=== PATIENT | female | born 1995 | race Caucasian/White ===

== ENCOUNTER 2018-04-30 07:03 | Emergency (ER) | payer OTHER, SELFPAY ==
[2018-04-30 07:05] VITALS: BP 116/75; PULSE 59; RESP 16; TEMP 36.6; O2SAT 99; BMI 24.0
--- NOTE | 2018-04-30 07:18 | PC.NURSE ---
taken tylenol 1gm last dose at 9pm
--- NOTE | 2018-04-30 08:09 | ED_ITS ---
HPI - Extremity Injury (Upper) General Chief Complaint: Extremity Injury, Upper Stated Complaint: cut left hand/finger Time Seen by Provider: 04/30/18 07:30 Source: patient Mode of arrival: ambulatory Limitations: no limitations History of Present Illness HPI narrative: Patient states she dropped a bottle of wine on the floor, and slipped on the wine and fell, catching herself with her right hand and cutting the hand. Patient states she lives on [facility], and was not able to get here until this morning. She states the injury happened about 2100 last night. Patient denies any other injuries, and is otherwise well. complaint: injury to: right and hand Onset (ago): hour(s) Other Extremity Injury: Right: hand (Laceration) Other injuries: none Handedness: ambidextrous Place: home Severity: mild Severity scale (1-10): 2 Relieving factors: none Exacerbating factors: none Context: fall Associated symptoms: denies other symptoms Related Data Previous Rx's Medication Instructions Recorded acyclovir 800 mg PO 5XD #50 tab 02/10/17 Allergies Allergy/AdvReac Type Severity Reaction Status Date / Time No Known Allergies Allergy Uncoded 10/17/17 12:44 Review of Systems Review of Systems All systems reviewed & are unremarkable except as noted in HPI and below Constitutional Denies chills, Denies fever(s), Denies lethargy and Denies weakness Eyes Denies change in vision, Denies eye discharge, Denies irritation and Denies loss of vision ENT Ears, Nose, Mouth, and Throat: Denies change in voice, Denies neck pain and Denies sore throat Cardiovascular Denies chest pain, Denies irregular heart rhythm, Denies lightheadedness, Denies palpitations, Denies dyspnea, Denies dyspnea on exertion and Denies orthopnea Respiratory Denies cough, Denies dyspnea, Denies dyspnea on exertion and Denies wheezing Gastrointestinal Gastrointestinal: Denies abdominal pain, Denies change in bowel habits, Denies diarrhea, Denies nausea and Denies vomiting Genitourinary Denies hematuria, Denies flank pain, Denies urinary incontinence and Denies urinary urgency Musculoskeletal Denies limited range of motion, Denies neck pain, Denies numbness and Denies radiating pain into limb Comments: Right hand laceration Integumentary/Breasts Denies pruritus, Denies erythema, Denies rash and Reports wounds (Laceration) Neurologic Denies confusion, Denies loss of vision, Denies numbness and Denies weakness Psychiatric Denies anxiety, Denies confusion, Denies depression, Denies homicidal ideation and Denies suicidal ideation Endocrine Denies palpitations Hematologic/Lymphatic Denies easy bruising Allergic/Immunologic Denies wheezing FOR[facility]LY [facility] Medical History Healthy adult (Acute) Surgical History No pertinent past surgical history (Acute) Social History Smoking Status: Never smoker Exam Initial Vital Signs Initial Vital Signs: Vital Signs Temperature 97.8 F 04/30/18 07:05 Pulse Rate 59 L 04/30/18 07:05 Respiratory Rate 16 04/30/18 07:05 Blood Pressure 116/75 04/30/18 07:05 Pulse Oximetry 99 04/30/18 07:05 Const General: cooperative and well developed Nutritional Appearance: well nourished Orientation: alert, awake, oriented x3 and not confused HENIL Head: normal to inspection Ears: hearing grossly normal bilaterally Nose: external nose normal Face and sinus: normal facial exam Mouth: moist mucous membranes Eyes General: appearance normal, both eyes and all related structures Eyelids: eyelids normal EOM: EOM intact bilaterally Neck Neck: normal visual inspection and full ROM Resp Effort & Inspection: normal respiratory effort, able to speak in complete sentences, normal respiratory pattern and no respiratory distress Skin Other: Patient has a 2 cm laceration extending through her right 5th web space. Depth is up to 4 mm. No foreign bodies are noted. Wound is oozing blood. No pulsatile bleeding. No evidence of nerve or tendon damage. Patient has full flexion and extension of her 5th and 4th fingers. Neuro General: alert, awake and oriented x3 Cognition: normal cognition Speech: speech normal Gait: normal gait Motor: no movement abnormalities noted Sensory Exam: no sensory deficits noted Procedures Laceration Repair Laceration 1: Site: hand Side (If applicable): right Size (cm): 2 Description: linear Depth: simple, single layer Local Anesthetic: lidocaine 1% Amount of anesthesia used (mL): 4 Pre-repair: wound explored, irrigated extensively and deep structures intact Skin layer closed with: nylon Size (cm): 5-0 Number of sutures: 5 Technique: simple, interrupted Course Course Narrative: Patient's wound was cleansed and repaired, as noted above. Tetanus is up-to-date. Patient was counseled regarding wound care and need for suture removal in 7 days. She was also counseled regarding wound infection signs and symptoms. The usual indications for return were discussed. Vital Signs - 8 hr 04/30/18 07:05 Temperature 97.8 F Pulse Rate 59 L Respiratory Rate 16 Blood Pressure 116/75 Pulse Oximetry 99 MDM - Extremity Injury (Upper) Medical Records Attestation: I reviewed the patient's medical records. Discharge Plan Departure Patient Disposition: Home Clinical Impression: Laceration Instructions: DI for Laceration Repair Activity Restrictions/Additional Instructions: Please do not immerse, rub, or scrub the wound, as this can increase your risk for infection. You should have her sutures removed in 7 days by your primary care physician or at the walk-in clinic. If you develops redness spreading away from the wound, or if the wound split apart and begins to drain, you should have the wound rechecked immediately. Prescriptions: No Action acyclovir 800 MG tablet 800 mg PO 5XD Qty: 50 RF: 0 Referrals: [facility] [Provider Group] (Please follow up in 7 days for suture removal.)
[2018-04-30 08:20] VITALS: BP 117/66; PULSE 70; RESP 16; O2SAT 98
--- NOTE | 2018-04-30 08:21 | PC.NURSE ---
right hand cleaned and dried, bacitracin ointment applied, ok per pt, 2x2 with kerlix and tape, with hemostasis, tolerated well, distal cms intact, with full rom.
== END 2018-04-30 08:22 | disposition home or self-care (01) ==
PROVIDERS: Emergency Provider Emergency Medicine
DX: S61.411A Laceration without foreign body of right hand, initial encounter (principal); W25.XXXA Contact with sharp glass, initial encounter
CPT/HCPCS: 12001; 99282

== ENCOUNTER 2019-01-21 11:20 | Emergency (ER) | payer OTHER, SELFPAY ==
[2019-01-21 11:34] VITALS: BP 123/65; PULSE 72; RESP 13; TEMP 36.3; O2SAT 99
--- NOTE | 2019-01-21 11:48 | ED.PSYCH ---
HPI - Psych General Chief Complaint: Psychiatric Symptoms Stated Complaint: cant stop crying/mental health Time Seen by Provider: 01/21/19 11:41 Source: patient and family (Mother) Mode of arrival: ambulatory Limitations: no limitations History of Present Illness HPI Narrative: Patient is an otherwise healthy 23-year-old female. Here in the emergency department with her mother. She states that since Sunday she has felt ?off? she states that she feels ? ?from her life. She states that she feels like she is questioning everything. She feels like she is depressed. No SI or HI. She lives here in the local area with a roommate. The rest of her family lives in [place]. She states that several years ago she had an episode of depression however this did not result in any long-term treatment or any long-term medications. She did state that on Sunday she smoked marijuana which she bought from the local shop. Since then symptoms have not worsened but just have not gotten any better. She was tearful in the room. Related Data Allergies Allergy/AdvReac Type Severity Reaction Status Date / Time No Known Allergies Allergy Uncoded 10/17/17 12:44 Review of Systems Constitutional Denies fever(s) and Denies headache(s) ENT Ears, Nose, Mouth, and Throat: Denies dizziness, Denies headache(s) and Denies disequilibrium Cardiovascular Denies chest pain and Denies dyspnea Respiratory Denies dyspnea Gastrointestinal Gastrointestinal: Denies abdominal pain Genitourinary Denies dysuria Musculoskeletal Denies myalgias and Denies arthralgias Integumentary/Breasts Denies rash Neurologic Reports behavioral changes, Denies confusion, Denies dizziness, Denies headache(s), Denies memory loss and Denies disequilibrium Psychiatric Reports behavioral changes, Denies confusion, Reports depression, Reports difficulty concentrating, Denies auditory hallucinations, Reports hopelessness, Reports irritability, Denies memory loss, Reports mood swings, Denies visual hallucinations, Denies hallucinations, Denies homicidal ideation and Denies suicidal ideation Hematologic/Lymphatic Denies easy bleeding and Denies easy bruising FOR[facility]LY [facility] Medical History Healthy adult (Acute) Social History Smoking Status: Never smoker Exam Initial Vital Signs Initial Vital Signs: Vital Signs Temperature 97.3 F L 01/21/19 11:34 Pulse Rate 72 01/21/19 11:34 Respiratory Rate 13 01/21/19 11:34 Blood Pressure 123/65 01/21/19 11:34 Pulse Oximetry 99 01/21/19 11:34 Const General: cooperative, well groomed and No acute distress Orientation: alert, awake and oriented x3 HENMT Head: normal to inspection and normocephalic Resp Effort & Inspection: normal respiratory effort Auscultation: clear to auscultation bilaterally Cardio Rate: regular rate Rhythm: regular rhythm Skin Lesions: no lesions Rashes: no rashes Neuro General: alert, awake and oriented x3 Cognition: normal cognition Speech: speech normal Extrem General: normal to inspection and capillary refill normal Psych Appearance: well kempt Speech and Movement: not agitated and restless Mood: dysthymic mood Affect: sad and No hostile Attitude: cooperative Thought Process: normal Thought Content: normal Course Orders Ordered: ED Orders 01/21/19 11:49 Consult to Point Of Sale Associate Stat 01/21/19 12:12 Urine Drug Screen, Rapid Stat 01/21/19 12:16 Basic Metabolic Panel Stat Complete Blood Count AUTO DIFF Stat Ethanol (ETOH) Stat Thyroid Stimulating Hormone Stat Vital Signs - 8 hr 01/21/19 11:34 Temperature 97.3 F L Pulse Rate 72 Respiratory Rate 13 Blood Pressure 123/65 Pulse Oximetry 99 MDM - Psych Lab Data Attestation: I reviewed the patient's lab results. Result diagrams: 01/21/19 12:16 01/21/19 12:16 Lab Results 01/21/19 01/21/19 01/21/19 Range/Units 12:12 12:16 12:16 WBC 7.7 (4.5-11.0) X10^3/uL RBC 4.33 (4.0-5.2) X10^6/uL Hgb 13.8 (12.0-16.0) g/dL Hct 40.6 (36-46) % MCV 93.8 (80-100) fL MCH 32.0 (26-34) PG MCHC 34.1 (30-36) % RDW 12.6 (11.6-14.8) % Plt Count 225 (150-400) X10^3/uL Neut % (Auto) 76.9 H (50-75) % Lymph % (Auto) 16.4 L (25-40) % [place] % (Auto) 5.8 (3-14) % Eos % (Auto) 0.6 L (2-4) % Baso % (Auto) 0.3 (0-2) % Neut # (Auto) 5900 (6069-1046) /uL Lymph # (Auto) 1300 (9655-2216) /uL [place] # (Auto) 400 (0-900) /uL Eos # (Auto) 0 (0-450) /uL Baso # (Auto) 0 (0-100) /uL Sodium 140 (137-145) mmol/L Potassium 4.0 (3.4-5.1) mmol/L Chloride 103 (98-107) mmol/L Carbon Dioxide 28 (22-32) mmol/L BUN 12 (7-17) mg/dL Creatinine 0.60 (0.52-1.04) mg/dL Estimated GFR > 60.0 (>60) mL/min BUN/Creatinine Ratio 20.0 (6-22) Glucose 114 H (70-100) mg/dL Calcium 9.2 (8.4-10.2) mg/dL TSH (0.47-4.68) uIU/mL Urine Opiates Screen Negative (Negative) Ur Oxycodone Screen Negative (Negative) Urine Methadone Screen Negative (Negative) Ur Barbiturates Screen Negative (Negative) U Tricyclic Antidepress Negative (Negative) Ur Phencyclidine Scrn Negative (Negative) Ur Amphetamines Screen Negative (Negative) U Methamphetamines Scrn Negative (Negative) Ur MDMA Scrn (Ecstasy) Negative (Negative) U Benzodiazepines Scrn Negative (Negative) Urine Cocaine Screen Negative (Negative) U Marijuana (THC) Screen Positive H (Negative) Ethyl Alcohol < 10 mg/dL 01/21/19 Range/Units 12:16 WBC (4.5-11.0) X10^3/uL RBC (4.0-5.2) X10^6/uL Hgb (12.0-16.0) g/dL Hct (36-46) % MCV (80-100) fL MCH (26-34) PG MCHC (30-36) % RDW (11.6-14.8) % Plt Count (150-400) X10^3/uL Neut % (Auto) (50-75) % Lymph % (Auto) (25-40) % [place] % (Auto) (3-14) % Eos % (Auto) (2-4) % Baso % (Auto) (0-2) % Neut # (Auto) (2580-9651) /uL Lymph # (Auto) (5085-3845) /uL [place] # (Auto) (0-900) /uL Eos # (Auto) (0-450) /uL Baso # (Auto) (0-100) /uL Sodium (137-145) mmol/L Potassium (3.4-5.1) mmol/L Chloride (98-107) mmol/L Carbon Dioxide (22-32) mmol/L BUN (7-17) mg/dL Creatinine (0.52-1.04) mg/dL Estimated GFR (>60) mL/min BUN/Creatinine Ratio (6-22) Glucose (70-100) mg/dL Calcium (8.4-10.2) mg/dL TSH 0.42 L (0.47-4.68) uIU/mL Urine Opiates Screen (Negative) Ur Oxycodone Screen (Negative) Urine Methadone Screen (Negative) Ur Barbiturates Screen (Negative) U Tricyclic Antidepress (Negative) Ur Phencyclidine Scrn (Negative) Ur Amphetamines Screen (Negative) U Methamphetamines Scrn (Negative) Ur MDMA Scrn (Ecstasy) (Negative) U Benzodiazepines Scrn (Negative) Urine Cocaine Screen (Negative) U Marijuana (THC) Screen (Negative) Ethyl Alcohol mg/dL Point of Care Testing Test Results Negative Urine Dip Bedside Urine Glucose Negative Bedside Urine Bilirubin - Negative Bedside Urine Ketone +++ 80 Urine Specific [place] 1.020 Bedside Urine Occult Blood +/- Bedside Urine pH 6.5 Bedside Urine Protein +/- 15 Bedside Urine Urobilinogen +/- 1mg Bedside Urine Nitrite - Negative Bedside Urine Leukocytes - Negative Esterase MDM Narrative Medical decision making narrative: Patient is not suicidal and not homicidal. She was seen by social work. She does have an appointment tomorrow [facility]. She was given resources and crisis numbers. She is medically cleared. We did discuss that her slightly low TSH . She was instructed that she needed to follow up with her primary doctor regarding this. She was given information with regard setting up a primary provider. She was given return precautions and follow-up instructions. She had a GCS of 15 in my opinion had the capacity to make decisions. Does not meet involuntary criteria. Patient and mother expressed understanding and agreement plan. Discharge Plan Departure Patient Disposition: Home Clinical Impression: Depression Qualifiers: Depression Type: unspecified Qualified Code(s): F32.9 - Major depressive disorder, single episode, unspecified Instructions: Depression Activity Restrictions/Additional Instructions: Keep your scheduled medical appointment that you have tomorrow. I would avoid any marijuana or alcohol until you have resolution of your symptoms. Return to the emergency department for any new or worsening symptoms
[2019-01-21 12:32] LABS: Add Manual Diff / Slide Review NO; Basophils Absolute Auto 0 /uL (0-100); Basophils Percent Auto 0.3 % (0-2); Eosinophils Absolute Auto 0 /uL (0-450); Eosinophils Percent Auto 0.6 % (2-4); Hematocrit 40.6 % (36-46); Hemoglobin 13.8 g/dL (12.0-16.0); Lymphocytes Absolute Auto 1300 /uL (1100-4500); Lymphocytes Percent Auto 16.4 % (25-40); Mean Corpuscular HGB Conc 34.1 % (30-36); Mean Corpuscular Volume 93.8 fL (80-100); Monocytes Absolute Auto 400 /uL (0-900); Monocytes Percent Auto 5.8 % (3-14); Neutrophils Absolute Auto 5900 /uL (1500-7000); Neutrophils Percent Auto 76.9 % (50-75); Platelet Count 225 X10^3/uL (150-400); Red Blood Cell Count 4.33 X10^6/uL (4.0-5.2); Red Cell Distribution Width 12.6 % (11.6-14.8); White Blood Cell Count 7.7 X10^3/uL (4.5-11.0)
[2019-01-21 12:37] LABS: Urine Amphetamines Negative (Negative); Urine Barbiturates Negative (Negative); Urine Benzodiazepines Negative (Negative); Urine Cocaine Negative (Negative); Urine MDMA Negative (Negative); Urine Methadone Negative (Negative); Urine Methamphetamines Negative (Negative); Urine Morphine/Opi cutoff 2000 Negative (Negative); Urine Oxycodone Negative (Negative); Urine Phencyclidine Negative (Negative); Urine Tetrahydrocannabinol Positive (Negative); Urine Tricyclic Antidepressant Negative (Negative)
[2019-01-21 12:42] LABS: Blood Urea Nitrogen 12 mg/dL (7-17); Calcium 9.2 mg/dL (8.4-10.2); Carbon Dioxide 28 mmol/L (22-32); Chloride 103 mmol/L (98-107); Estimated Glomerular Filt Rate > 60.0 mL/min (>60); Ethanol (ETOH) < 10 mg/dL; Glucose 114 mg/dL (70-100); HEMOLYSIS < 15 (0-50); Sodium 140 mmol/L (137-145)
[2019-01-21 13:29] LABS: Thyroid Stimulating Hormone 0.42 uIU/mL (0.47-4.68)
[2019-01-21 14:54] VITALS: BP 113/60; PULSE 61; RESP 15; O2SAT 100
[2019-01-21 15:05] VITALS: BP 104/64; PULSE 150; RESP 30; TEMP 36.6; O2SAT 100
--- NOTE | 2019-01-21 15:41 | CM.SWNOTE ---
PLATE MAKER Note: Received request from Dr. Leyva today to evaluate patient for emotional status/mental health. Patient is a 23yr old female brought into the ED by her Mother with depression. Patient currently has no PCP. Primary payor is 1)[employer]. Patient resides on [facility] with roommate. Mother/Brenda resides in [place] and came to see patient when patient called her and said something is wrong. Per patient she smoke marijuana on Sunday- after that she has not felt like myself. Tox screen negative for other substances. PLATE MAKER met with patient explained role. Patient alert and oriented but teary and emotional at time of visit. PLATE MAKER met first with patient alone. Patient denies suicidal or homicidal ideation. Patient reports that she just feels overwhelmed and tries too do to much. Patient also adds that she is a perfectionist. With patient's permission, Mother joined interview. Mother confirms that patient has a lot of stress with work. Patient works in [employer] service and it's summer which is causing additional stress. Patient also tends to be a loner. Patient's best friend and roommate left town which also attributes to patient's mood. Patient denies history with depression or medication. Patient has seen a counselor once several years ago. Patient did not continue because she felt that she did not click with the counselor. PLATE MAKER placed call to patient's health care provider/[employer] provided list of contracted counselors and psychiatrists for patient and Mother to review. Mother agreeable to take patient home today. It is unclear if patient having difficulty due to the marijuana she smoked on Sunday? or life stresses. Regardless, patient agreeable to seek counselor. Mother made appointment for patient to be seen at [facility] tomorrow 01-22-19 at 2:00pm. If prescription needed they have prescriber. Dr. Leyva updated and agreeable to plan. P: Home today. Community resources provided for mental health and crisis. RHETT Cordova
== END 2019-01-21 15:07 | disposition home or self-care (01) ==
PROVIDERS: Emergency Provider Emergency Medicine
DX: F32.9 Major depressive disorder, single episode, unspecified (principal)
CPT/HCPCS: 36415; 80048; 80305; 80320; 81003; 81025; 84443; 85025; 99282; 99283

== ENCOUNTER 2019-08-07 06:58 | Emergency (ER) | payer OTHER, MEDICAID, SELFPAY ==
[2019-08-07 07:07] VITALS: BP 127/72; PULSE 87; RESP 15; TEMP 36.8; O2SAT 99
--- NOTE | 2019-08-07 07:35 | PC.NURSE ---
pt reports 12 hours old laceration right index finger , from open canned. arrived with steri strip +rom distal cms intact.
--- NOTE | 2019-08-07 07:41 | ED.WOUNDLAC ---
HPI - Wound/Laceration General Chief Complaint: Wound/Laceration Stated Complaint: cut on right index knuckle cut on can Time Seen by Provider: 08/07/19 07:41 Source: patient Mode of arrival: Ambulatory History of Present Illness HPI narrative: CC: Laceration over the dorsum of the metacarpal-phalangeal joint right index finger. HPI. The patient last night cut the dorsum of her right index finger over the metacarpophalangeal joint on a can that had been opened in the refrigerator for a while. She states that her tetanus is up-to-date. [facility] was unable to come into the emergency department last night. She is not having significant pain or discomfort. Last night she was able to flex and extend her finger without difficulty today it is stiff. They washed out the finger last night with iodine solution. She has no loss of sensation. There is no signs of infection. She has had no fever chills or sweats. She has been in good health has no other complaints. She denies being . She has had no chest pain cough shortness of breath difficulty in breathing no abdominal pain nausea vomiting or diarrhea. She has had no urinary symptoms. She does not smoke Related Data Home Medications Medication Instructions Recorded Confirmed mirtazapine PO 03/03/19 03/03/19 naltrexone PO 03/03/19 03/03/19 Previous Rx's Medication Instructions Recorded mupirocin 2 % topical ointment 1 applic TOP BID #30 gram 03/03/19 cephalexin [Keflex] 500 mg PO QID #20 cap 08/07/19 ibuprofen 600 mg PO Q6H PRN #20 tab 08/07/19 Allergies Allergy/AdvReac Type Severity Reaction Status Date / Time No Known Drug Allergies Allergy Verified 08/07/19 07:07 Review of Systems Review of Systems ROS Unobtainable: All systems reviewed & are unremarkable except as noted in HPI and below Patient History Medical History Healthy adult (Acute) Surgical History No pertinent past surgical history (Acute) Social History Smoking Status: Never smoker Smoking Status: Never smoker alcohol intake frequency: a few times a week Substance Use Type: does not use Exam Narrative Exam Narrative: PHYSICAL EXAM: CONSTITUTIONAL: Awake, Alert, Oriented, Coherent, Cooperative in NAD. Does not appear toxic or ill. HEAD: AT/NC EENT: PERRL, FROM of eyes, no discharge, no nystagmus NECK: Supple, no obvious JVD, Trachea is midline without stridor, no palpable LN or masses. LUNGS: Clear with symmetrical breath sounds without respiratory distress HEART: Normal heart tones, regular rhythm and rate without murmur. EXTREMITIES: The patient is right-hand dominant. She has approximately a 1 cm rim cm and half transverse laceration across the dorsal surface of the metacarpophalangeal joint of the right index finger. At the present time it is scabbed over and is held together with Steri-Strips. There is no erythema no active bleeding at this time. SKIN: No rash, bruising, petechiae or purpura over the right arm and hand. There is no signs of infection or erythema or exquisite tenderness. The patient has a smaller 2236 mm transverse laceration over the metacarpophalangeal joint of the middle finger. The patient is able to flex and extend the other fingers other than her index finger. NEURO: Awake, alert, oriented, conversive, cranial nerves II-XII are symmetrical and normal, moves all 4 extremities and is ambulatory Initial Vital Signs Initial Vital Signs: Vital Signs Temperature 98.3 F 08/07/19 07:07 Pulse Rate 87 08/07/19 07:07 Respiratory Rate 15 08/07/19 07:07 Blood Pressure 127/72 08/07/19 07:07 Pulse Oximetry 99 08/07/19 07:07 Procedures Laceration Repair Laceration 1: Site: hand Side (If applicable): right Size (cm): 1.5 Description: linear (Curvilinear laceration over the dorsum of the right metacarpophalangeal joint for the index finger) Depth: simple, single layer Local Anesthetic: lidocaine 2% Amount of anesthesia used (mL): 2 Skin layer closed with: nylon Size (cm): 4-0 Number of sutures: 3 Technique: simple, interrupted Course Orders Ordered: Discontinued Medications Bacitracin (Bacitracin) 1 applic TOP NOW ONE Stop: 08/07/19 07:48 Last Admin: 08/07/19 08:12 Dose: 1 applic Documented by: ROSIE Cephalexin HCl (Keflex) 500 mg PO NOW ONE Stop: 08/07/19 07:48 Last Admin: 08/07/19 08:12 Dose: 500 mg Documented by: ROSIE Diphtheria/Tetanus/Acell Pertussis (Adacel) 0.5 ml IM .ONCE ONE Stop: 08/07/19 07:56 Last Admin: 08/07/19 08:11 Dose: 0.5 ml Documented by: ROSIE Lidocaine HCl (Xylocaine 2%) 5 ml SUBCUT NOW ONE Stop: 08/07/19 07:54 Last Admin: 08/07/19 08:12 Dose: 5 ml Documented by: ROSIE Vital Signs Vital signs: Vital Signs - 8 hr 08/07/19 07:07 Temperature 98.3 F Pulse Rate 87 Respiratory Rate 15 Blood Pressure 127/72 Pulse Oximetry 99 Discharge Plan Departure Patient Disposition: Home Clinical Impression: Finger laceration Qualifiers: Encounter type: initial encounter Finger: index finger Damage to nail status: without damage Foreign body presence: without foreign body Laterality: right Qualified Code(s): S61.210A - Laceration without foreign body of right index finger without damage to nail, initial encounter Discharge Date/Time: 08/07/19 09:10 Instructions: DI for Laceration Repair, DI for Wound Infection Activity Restrictions/Additional Instructions: 1. Leave the current dressing and bandage on for 24 hours. Afterwards you can remove the Band-Aid, wash in running water with soap and water rinse well, pat dry do not rub. Apply a small amount of triple antibiotic, and cover with bandage. 2. Wound check in 2 days. Wound check in an urgent care center or primary care physician. If the wound becomes red swollen hot tender with drainage and other signs of infection you need to be seen immediately in an urgent care center, primary care physician, or return to the emergency department. 3. Sutures are to be removed in 10 days. Or at least evaluated at that time. Since of the laceration is over the knuckle flexing and extending her finger will pull on at and may alternate after the sutures are removed. Leave the splint on the finger for 3 days and then removed. 4. Take the Keflex 500 mg 4 times a day for 5 days then discontinue. Prescriptions: New cephalexin [Keflex] 500 mg capsule 500 mg PO QID Qty: 20 RF: 0 ibuprofen 600 mg tablet 600 mg PO Q6H PRN (Reason: fever or pain) Qty: 20 RF: 0 No Action naltrexone PO RF: 0 mirtazapine PO RF: 0 mupirocin 2 % ointment 1 applic TOP BID Qty: 30 RF: 0
[2019-08-07] MEDS: TET,DIPH,PERTUSS(ACELL),VAC/PF 0.5 ML SYRINGE IM (08:11)
[2019-08-07] MEDS: BACITRACIN OINT 0.9 GM PCKT 1 APPLIC TOP (08:12)
[2019-08-07] MEDS: cephALEXin 250 MG CAPSULE 500 MG PO (08:12)
[2019-08-07] MEDS: LIDOCAINE 2% INJ MDV 5 ML SUBCUT (08:12)
--- NOTE | 2019-08-07 08:41 | PC.NURSE ---
with pain contract, she doesnt want to speak with [employer] at this time, will return if needed, she states, she has an appt with her primary at 1300 today. explained, for pending dc, will need dc instruction from . verbal understanding. t
--- NOTE | 2019-08-07 09:09 | PC.NURSE ---
ointment applied with 2x2 with kerlix and tape. tolerated well, no bleeding , +distal cms intact.
== END 2019-08-07 09:10 | disposition home or self-care (01) ==
PROVIDERS: Emergency Provider Emergency Medicine
DX: S61.210A Laceration without foreign body of right index finger without damage to nail, initial encounter (principal); W26.8XXA Contact with other sharp object(s), not elsewhere classified, initial encounter; Z23 Encounter for immunization
CPT/HCPCS: 12001; 90471; 99283; 90715

== ENCOUNTER → 2020-06-05 14:29 | Outpatient (CLI) | payer OTHER, MEDICAID, SELFPAY ==
[2020-06-05 15:00] LABS: Bilirubin Urine UA NEGATIVE (NEGATIVE); Color Urine UA YELLOW; Glucose Urine UA NEGATIVE (Negative); Ketones Urine UA NEGATIVE (NEGATIVE); Leukocyte Esterase Urine UA 3+ (NEGATIVE); Nitrite Urine UA NEGATIVE (Negative); Occult Blood Urine UA TRACE-LYSED (Negative); Protein Urine UA 1+ (Negative); Urobilinogen Urine UA 0.2 E.U./dL (0.2)
[2020-06-05 15:02] LABS: Appearance Urine UA Cloudy
[2020-06-05 15:17] LABS: RBC Urine 0-1/HPF (0-5/HPF)
[2020-06-05 15:18] LABS: Bacteria Urine Many (>30); Culture Indicated Urine Specimen Cultured; Hyaline Casts Urine 0-1/LPF; WBC Urine 30-100/HPF (0-5/HPF)
== END ==
PROVIDERS: Visit Provider Nurse Practitioner
DX: R35.0 Frequency of micturition (principal)
CPT/HCPCS: 81001; 87077; 87086; 87186

== ENCOUNTER → 2020-07-13 11:40 | Outpatient (CLI) | payer OTHER, MEDICAID, SELFPAY ==
[2020-07-13 12:35] LABS: Hemoglobin A1C% w Est Avg Glu 5.1 % (4.0-6.0)
[2020-07-13 12:40] LABS: Alanine Aminotransferase 17 IU/L (<35); Albumin 4.6 g/dL (3.5-5.0); Albumin Globulin Ratio 1.4 (1.0-2.8); Alkaline Phosphatase 62 U/L (38-126); Aspartate Aminotransferase 26 IU/L (14-36); BUN Creatinine Ratio 21.1 (6-22); Bilirubin Total 0.3 mg/dL (0.2-1.3); Blood Urea Nitrogen 12 mg/dL (7-17); Calcium 9.1 mg/dL (8.4-10.2); Carbon Dioxide 29 mmol/L (22-32); Chloride 105 mmol/L (98-107); Estimated Glomerular Filt Rate > 60.0 mL/min (>60); Globulin 3.2 g/dL (1.7-4.1); Glucose 95 mg/dL (70-100); HEMOLYSIS < 15 (0-50); Potassium 4.3 mmol/L (3.4-5.1); Sodium 137 mmol/L (137-145); Total Protein 7.8 g/dL (6.3-8.2)
[2020-07-13 12:48] LABS: Add Manual Diff / Slide Review NO; Basophils Absolute Auto 0 /uL (0-100); Basophils Percent Auto 0.5 % (0-2); Eosinophils Absolute Auto 0 /uL (0-450); Eosinophils Percent Auto 0.8 % (2-4); Hematocrit 39.4 % (36-46); Hemoglobin 13.5 g/dL (12.0-16.0); Lymphocytes Absolute Auto 1700 /uL (1100-4500); Lymphocytes Percent Auto 29.4 % (25-40); Mean Corpuscular HGB Conc 34.2 % (30-36); Mean Corpuscular Hemoglobin 31.4 PG (26-34); Mean Corpuscular Volume 91.6 fL (80-100); Monocytes Absolute Auto 400 /uL (0-900); Monocytes Percent Auto 7.5 % (3-14); Neutrophils Absolute Auto 3600 /uL (1500-7000); Neutrophils Percent Auto 61.8 % (50-75); Platelet Count 318 X10^3/uL (150-400); Red Cell Distribution Width 12.8 % (11.6-14.8); White Blood Cell Count 5.8 X10^3/uL (4.5-11.0)
[2020-07-13 13:40] LABS: Free T4, Direct Thyroxine 1.05 ng/dL (0.78-2.19)
[2020-07-13 13:54] LABS: Thyroid Stimulating Hormone 0.769 uIU/mL (0.47-4.68)
== END ==
PROVIDERS: PCP Registered Nurse; Referring Provider Registered Nurse; Visit Provider Registered Nurse
DX: R79.89 Other specified abnormal findings of blood chemistry (principal); M27.40 Unspecified cyst of jaw; Z79.899 Other long term (current) drug therapy; R73.01 Impaired fasting glucose; Z83.3 Family history of diabetes mellitus
CPT/HCPCS: 36415; 80053; 83036; 84439; 84443; 85025

== ENCOUNTER → 2020-07-22 08:11 | Outpatient (CLI) | payer OTHER, MEDICAID, SELFPAY ==
--- NOTE | 2020-07-22 08:13 | DI.US.S_ITS ---
PROCEDURE: US PELVIC COMPLETE INDICATIONS: VAGINAL PAIN AND IUD CHECK TECHNIQUE: Real-time scanning was performed of the pelvic organs, with image documentation. Additional endovaginal scanning was necessary due to incomplete visualization of the adnexal and endometrial structures by transabdominal scanning. COMPARISON: None. FINDINGS: Transabdominal scanning: Limited scanning through the kidneys shows no hydronephrosis. No pathologic free abdominal or pelvic fluid. Endovaginal scanning: Uterus: Uterus is normal in size at 7.9 x 5.1 x 3.4 cm. The endometrium measures 4 mm in combined thickness. An IUD is seen, with a crossbar at the uterine fundus. Note is made that the right crossbar of the IUD is angled more posteriorly than the left crossbar, and it may be located within the myometrium. Ovaries: The right ovary measures 5.1 x 3 x 2.8 cm. The left ovary measures 3.7 x 1.7 x 2.1 cm. The ovaries have a normal sonographic appearance. No adnexal masses are seen. Normal appearing arterial waveforms are confirmed to each ovary. IMPRESSION: The IUD is seen located superiorly, with the crossbar at the uterine fundus. Note is made that the right crossbar is located more posteriorly than the left crossbar and it may be within the myometrium itself. If it would be helpful for clinical management decision making, please consider a dedicated gynecological protocol MRI for further evaluation (assuming that there is no contraindication). The ovaries demonstrate an unremarkable appearance, although the right ovary is larger than the left. Dictated by: Shad Marie M.D. on 07/22/2020 at 8:55 Approved by: Shad Marie M.D. on 07/22/2020 at 8:59
== END ==
PROVIDERS: PCP Registered Nurse; Referring Provider Registered Nurse; Visit Provider Registered Nurse
DX: R10.2 Pelvic and perineal pain (principal); Z30.431 Encounter for routine checking of intrauterine contraceptive device
CPT/HCPCS: 76830; 76856

== ENCOUNTER 2020-08-04 08:50 | Emergency (ER) | payer OTHER, MEDICAID, SELFPAY ==
[2020-08-04 08:59] VITALS: BP 121/80; PULSE 78; RESP 16; TEMP 36.7; O2SAT 97; BMI 32.5
[2020-08-04 10:02] VITALS: PULSE 78; RESP 14; O2SAT 98
--- NOTE | 2020-08-04 10:09 | ED_ITS ---
HPI - Female Genitourinary <Yani Delgado PA-C - Last Filed: 08/04/20 18:33> General Chief complaint: Urogenital-Female Stated complaint: IUD may have moved. Painful Time Seen by Provider: 08/04/20 10:07 Source: patient Mode of arrival: Ambulatory Limitations: no limitations History of Present Illness HPI Narrative: This is a well-appearing but uncomfortable 24-year-old with a recent history of dyspareunia, who presents complaining of acute pelvic pain that occurred during sex this morning was extreme and has continued since that time. Patient took 1 5 mg hydrocodone at home that she had left over from a dental procedure and this helped her pain she is now 5/10 she says her pain is sharp and it is located low mostly in the center of her pelvis, her pain is better if she is not moving and it is worse if she is moving around or changing position. She states this is similar to pain she had previously a few weeks ago but much more intense. She has been having pain with sex for 3-4 weeks, she was seen by her primary care provider a few weeks ago, had a pelvic exam and had an ultrasound as an outpatient. She was told that her IUD is possibly slightly out of position at that time and she has a follow-up appointment planned with her primary care on August 11. Her Mirena IUD was placed 2 years ago. She thinks that in the last couple of weeks her vaginal discharge is may be ?a little bit more smelly than usual but otherwise the same?. She denies urinary symptoms, nausea, vomiting, fevers, chills, upper abdominal pain, flank pain, concern for STIs, vaginal bleeding or change in discharge. MD Complaint: pelvic pain Onset (ago): hour(s) (3) Location: suprapubic Female Urogenital Radiation: Non-Radiating Severity: severe Severity scale (1-10): 5 (Was a 10 until she took hydrocodone) Quality: Cramping and Sharp Duration: constant Relieving factors: medication Exacerbating factors: movement and other (sex) Sexual activity: No Patient : No Related Data Home Medications Medication Instructions Recorded Confirmed mirtazapine PO 03/03/19 07/20/20 Previous Rx's Medication Instructions Recorded ibuprofen 800 mg PO TID PRN #20 tab MDD 08/04/20 3200mg metronidazole 250 mg PO Q6H 7 Days #28 tab 08/04/20 Allergies Allergy/AdvReac Type Severity Reaction Status Date / Time No Known Drug Allergies Allergy Verified 08/04/20 08:59 Review of Systems <Yani Delgado PA-C - Last Filed: 08/04/20 18:33> Review of Systems Narrative: GENERAL: Denies chills, fatigue, malaise, fever, sweats. HEENT: Denies sinus pain, ear pain, sore throat, difficulty swallowing, dizziness. RESPIRATORY: Denies dyspnea, cough, wheezing, hemoptysis, sputum. CARDIOVASCULAR: Denies chest pain, palpitations, orthopnea, edema, GASTROINTESTINAL: Denies nausea, vomiting, positive for low abdominal/pelvic pain severe acute pain starting this morning with sex, intermittent pains over the last 3-4 weeks with sex, negative for diarrhea, constipation, melena. : Denies dysuria, frequency, incontinence, hematuria, urinary retention. MUSCULOSKELETAL: denies weakness, joint pain, or bony pain SKIN: Denies rash, skin lesions, or other NEUROLOGIC: Denies weakness, headache, numbness, change in speech, confusion, seizures, incoordination. PSYCHIATRIC: No concerning psychosocial issues. 12 point review of systems is negative except for those stated above ROS Unobtainable: All systems reviewed & are unremarkable except as noted in HPI and below Patient History <Yani Delgado PA-C - Last Filed: 08/04/20 18:33> Medical History Chicken pox Healthy adult Irregular menstrual cycle (~2011) Shingles (~2015) Wears contact lenses Surgical History Anesthesia History of surgical removal of ganglion cyst No pertinent past surgical history Family History Grandfather Diabetes mellitus Grandmother Diabetes mellitus Cancer Lymphoma alcohol intake frequency: a few times a week Substance Use Type: does not use Exam <Yani Delgado PA-C - Last Filed: 08/04/20 18:33> Narrative Exam Narrative: GENERAL: 24 year old patient appears stated age. Well-nourished, well-developed patient, in moderate distress. HEAD: Atraumatic. Normocephalic. EYES: Pupils equal round and reactive. Extraocular motions intact. No scleral icterus. No injection or drainage. ENT: Nose without bleeding, purulent drainage. Throat without erythema, tonsillar hypertrophy or exudate. Airway patent. NECK: Trachea midline. Non tender CARDIOVASCULAR: Regular rate and rhythm without murmurs, gallops, or rubs. RESPIRATORY: Clear to auscultation. Breath sounds equal bilaterally. No wheezes, rales, or rhonchi. GASTROINTESTINAL: Abdomen soft, she is tender suprapubically and in the right and left adnexal area most tender (exquisitely) midline otherwise non-tender, nondistended. : Pelvic exam performed with ERNIE Damon in the room as intranet support and assistant reading teacher. External genitalia is normal in appearance, without lesions, no bleeding or discharge noted. Speculum exam with good visualization of the cervix showing IUD strings black in color present at the cervical os. Cervix is normal in appearance, Os is closed, there is a small amount of thick mucus present at the cervical os, no lesions or bleeding of the cervix or vaginal johnson noted. EXTREMITIES: No edema or joint tenderness. BACK: Nontender without deformity or crepitance. No flank/CVA tenderness. NEURO: AOx3. SKIN: No rash or erythema of visible areas Initial Vital Signs Initial Vital Signs: Vital Signs Temperature 98.1 F 08/04/20 08:59 Pulse Rate 78 08/04/20 08:59 Respiratory Rate 16 08/04/20 08:59 Blood Pressure 121/80 08/04/20 08:59 Pulse Oximetry 97 08/04/20 08:59 <Swati Garcia DO - Last Filed: 08/05/20 08:46> Initial Vital Signs Initial Vital Signs: Vital Signs Temperature 98.1 F 08/04/20 08:59 Pulse Rate 78 08/04/20 08:59 Respiratory Rate 16 08/04/20 08:59 Blood Pressure 121/80 08/04/20 08:59 Pulse Oximetry 97 08/04/20 08:59 Procedures <Yani Delgado PA-C - Last Filed: 08/04/20 18:33> [facility] [place] Procedure: IUD removal Location: Cervix/uterus (IUD strings accessed at cervical OS) Time out performed: Yes Technique/Description of procedure performed: Speculum exam with swabs, visualization of IUD strings with speculum exam in clear view of the cervix, strings grasped with ring forceps and IUD removed. Complete removal on inspection of the IUD. No bleeding noted after removal. ERNIE Damon present as intranet support/assistant reading teacher Patient tolerated procedure: Well Complications: pain Additional Comments: Obtained verbal consent for removal of the IUD from the patient prior to the procedure, explained the procedure and the risks including bleeding, incomplete removal, pain, or inability to perform the procedure if strings not visualized at cervical os. Procedure performed at 11:46am Course <Yani Delgado PA-C - Last Filed: 08/04/20 18:33> Course Course Narrative: Spoke with endoscopy technician 3 about the patient's recent ultrasound that was performed on the showing that she possibly has 1 of the cross bars of her IUD in her myometrium and that MRI would be valuable for further clarification. At this point holding off on ultrasound and will look into possibility of MRI today and see if patient's doctor is available for consult regarding this as well. 10:34 Discussed patient with attending Dr. Garcia about patient, will consult Dr. Patterson, OB 10:[address] Patterson, she recommends that if the strings are visible on pelvic exam that we just remove the IUD today as this is the suspected cause of the patient's pain. She states that if the strings are not visible than should get an ultrasound and call her back with results. 11:19 IUD was successfully removed completely with patient giving verbal consent she had a normal pelvic exam otherwise, see exam, procedures. Vaginal culture swab was also obtained, low concern for uterine infection associated with her IUD however this is a consideration. Waiting results of BV lab and anticipate discharge pending these with counseling regarding vaginal rest, control options, high strength ibuprofen prescription 12:05 Orders Ordered: Discontinued Medications Acetaminophen (Acetaminophen 325 Mg Tablet) 975 mg PO NOW ONE Stop: 08/04/20 11:59 Last Admin: 08/04/20 12:09 Dose: 975 mg Documented by: ERICA Ketorolac Tromethamine (Ketorolac 60 Mg/2 Ml Vial) 15 mg IV NOW ONE Stop: 08/04/20 10:21 Last Admin: 08/04/20 10:48 Dose: 15 mg Documented by: FELIX Vital Signs Vital signs: Vital Signs - 8 hr 08/04/20 13:14 Pulse Rate 85 Respiratory Rate 16 Blood Pressure 118/64 Pulse Oximetry 100 <Swati Garcia DO - Last Filed: 08/05/20 08:46> Orders Ordered: Discontinued Medications Acetaminophen (Acetaminophen 325 Mg Tablet) 975 mg PO NOW ONE Stop: 08/04/20 11:59 Last Admin: 08/04/20 12:09 Dose: 975 mg Documented by: ERICA Ketorolac Tromethamine (Ketorolac 60 Mg/2 Ml Vial) 15 mg IV NOW ONE Stop: 08/04/20 10:21 Last Admin: 08/04/20 10:48 Dose: 15 mg Documented by: FELIX Vital Signs Vital signs: Vital Signs - 8 hr 08/04/20 13:14 Pulse Rate 85 Respiratory Rate 16 Blood Pressure 118/64 Pulse Oximetry 100 MDM - Female Genitourinary <Yani Delgado PA-C - Last Filed: 08/04/20 18:33> Differential Diagnosis Differential diagnosis: Likely urinary tract infection, bacterial vaginosis, vaginitis and other (Dyspareunia, IUD malposition, pelvic pain) Medical Records Attestation: I reviewed the patient's medical records. Lab Data Attestation: I reviewed the patient's lab results. Result diagrams: 08/04/20 10:31 08/04/20 10:31 Labs: Lab Results 08/04/20 08/04/20 08/04/20 Range/Units 10:31 10:31 10:45 WBC 7.3 (4.5-11.0) X10^3/uL RBC 4.27 (4.0-5.2) X10^6/uL Hgb 13.0 (12.0-16.0) g/dL Hct 39.4 (36-46) % MCV 92.2 (80-100) fL MCH 30.6 (26-34) PG MCHC 33.1 (30-36) % RDW 12.9 (11.6-14.8) % Plt Count 255 (150-400) X10^3/uL Neut % (Auto) 67.6 (50-75) % Lymph % (Auto) 23.8 L (25-40) % [place] % (Auto) 7.6 (3-14) % Eos % (Auto) 0.6 L (2-4) % Baso % (Auto) 0.4 (0-2) % Neut # (Auto) 4900 (5418-5225) /uL Lymph # (Auto) 1700 (2696-4066) /uL [place] # (Auto) 600 (0-900) /uL Eos # (Auto) 0 (0-450) /uL Baso # (Auto) 0 (0-100) /uL Sodium 136 L (137-145) mmol/L Potassium 4.2 (3.4-5.1) mmol/L Chloride 103 (98-107) mmol/L Carbon Dioxide 28 (22-32) mmol/L BUN 12 (7-17) mg/dL Creatinine 0.54 (0.52-1.04) mg/dL Estimated GFR > 60.0 (>60) mL/min BUN/Creatinine Ratio 22.2 H (6-22) Glucose 94 (70-100) mg/dL Calcium 9.0 (8.4-10.2) mg/dL Total Bilirubin 0.6 (0.2-1.3) mg/dL AST 33 (14-36) IU/L ALT 26 (<35) IU/L Alkaline Phosphatase 60 (38-126) U/L Total Protein 7.5 (6.3-8.2) g/dL Albumin 4.4 (3.5-5.0) g/dL Globulin 3.1 (1.7-4.1) g/dL Albumin/Globulin Ratio 1.4 (1.0-2.8) Urine RBC None seen (0-5/HPF) Urine WBC None seen (0-5/HPF) Urine Bacteria None seen (None) Ur Culture Indicated? Cult not indicated Micro UA Comment Microscopic normal Point of Care Testing Test Results Negative Urine Dip Bedside Urine Glucose Negative Bedside Urine Ketone +/- 5 Urine Specific Onset 1.015 Bedside Urine Occult Blood - Negative Bedside Urine pH 7.5 Bedside Urine Protein +/- 15 Bedside Urine Urobilinogen - Negative Bedside Urine Nitrite - Negative Bedside Urine Leukocytes - Negative Esterase Imaging Data US Pelvic 07/22/20: Radiologist's Impression: [address] [id number] ReportSigned Patient: Carmelita Ness [facility]#: [id number]: 1995Acct:[id number]/Sex: FDate of Service: 07/22/20[place]: [facility] [place] [id number] Procedure: US pelvic complete Ordering Provider: Rose Diaz PROCEDURE: US PELVIC COMPLETE INDICATIONS: VAGINAL PAIN AND IUD CHECK TECHNIQUE: Real-time scanning was performed of the pelvic organs, with image documentation. Additional endovaginal scanning was necessary due to incomplete visualization of the adnexal and endometrial structures by transabdominal scanning. COMPARISON: None. FINDINGS: Transabdominal scanning: Limited scanning through the kidneys shows no hydronephrosis. No pathologic free abdominal or pelvic fluid. Endovaginal scanning: Uterus: Uterus is normal in size at 7.9 x 5.1 x 3.4 cm. The endometrium measur es 4 mm in combined thickness. An IUD is seen, with a crossbar at the uterine fundus. Note is made that the right crossbar of the IUD is angled more posteriorly than the left crossbar, and it may be located within the myometrium. Ovaries: The right ovary measures 5.1 x 3 x 2.8 cm. The left ovary measures 3.7 x 1.7 x 2.1 cm. The ovaries have a normal sonographic appearance. No adnexal masses are seen. Normal appearing arterial waveforms are confirmed to each ovary. IMPRESSION: The IUD is seen located superiorly, with the crossbar at the uterine fundus. Note is made that the right crossbar is located more posteriorly than the left crossbar and it may be within the myometrium itself. If it would be helpful for clinical management decision making, please consider a dedicated gynecological protocol MRI for further evaluation (assuming that there is no contraindication). The ovaries demonstrate an unremarkable appearance, although the right ovary is larger than the left. Dictated by: Shad Marie M.D. on 07/22/2020 at 8:55 Approved by: Shad Marie M.D. on 07/22/2020 at 8:59 MDM Narrative Medical decision making narrative: This is a well-appearing but somewhat uncomfortable 24-year-old woman who presents complaining of severe pelvic pain/dyspareunia with an episode of sex this morning. She has had similar symptoms on and off for weeks now, had a primary care visit 2 weeks ago with a pelvic exam and ultrasound that revealed her IUD may be malpositioned possibly with 1 arm into the myometrium. Episode this morning feels similar to previous severe episode of pain she had a few weeks ago but more intense. Pain is almost completely improved with administration of Toradol. She has no concern for STIs, no vaginal discharge or bleeding, no other symptoms, unremarkable vitals. Consulted electrical prospecting observer after discussing the patient with attending physician, seed yeast operator recommended removing the IUD if the patient was amenable to this as it is likely the cause of her discomfort. Patient was agreeable to IUD removal and procedure performed as above in procedures successfully. Ultrasound is not obtained as the patient had a recent pelvic ultrasound and pain is consistent with previous pain likely associated with IUD in the setting of dyspareunia. She did have some mild right lower quadrant tenderness so basic labs were obtained, I think uterine infection is unlikely, appendicitis is unlikely, labs were unremarkable except she did have a bacterial vaginosis. Prescription for metronidazole, high strength ibuprofen, advised to follow-up with primary care provider advised regarding vaginal rest, using condoms for control until follow-up appointment in 6 days. Emergency return precautions provided follow-up plans discussed all questions answered. <Swati Garcia, DO - Last Filed: 08/05/20 08:46> Lab Data Labs: Lab Results 08/04/20 08/04/20 08/04/20 Range/Units 10:31 10:31 10:45 WBC 7.3 (4.5-11.0) X10^3/uL RBC 4.27 (4.0-5.2) X10^6/uL Hgb 13.0 (12.0-16.0) g/dL Hct 39.4 (36-46) % MCV 92.2 (80-100) fL MCH 30.6 (26-34) PG MCHC 33.1 (30-36) % RDW 12.9 (11.6-14.8) % Plt Count 255 (150-400) X10^3/uL Neut % (Auto) 67.6 (50-75) % Lymph % (Auto) 23.8 L (25-40) % [place] % (Auto) 7.6 (3-14) % Eos % (Auto) 0.6 L (2-4) % Baso % (Auto) 0.4 (0-2) % Neut # (Auto) 4900 (0167-4595) /uL Lymph # (Auto) 1700 (7753-1673) /uL [place] # (Auto) 600 (0-900) /uL Eos # (Auto) 0 (0-450) /uL Baso # (Auto) 0 (0-100) /uL Sodium 136 L (137-145) mmol/L Potassium 4.2 (3.4-5.1) mmol/L Chloride 103 (98-107) mmol/L Carbon Dioxide 28 (22-32) mmol/L BUN 12 (7-17) mg/dL Creatinine 0.54 (0.52-1.04) mg/dL Estimated GFR > 60.0 (>60) mL/min BUN/Creatinine Ratio 22.2 H (6-22) Glucose 94 (70-100) mg/dL Calcium 9.0 (8.4-10.2) mg/dL Total Bilirubin 0.6 (0.2-1.3) mg/dL AST 33 (14-36) IU/L ALT 26 (<35) IU/L Alkaline Phosphatase 60 (38-126) U/L Total Protein 7.5 (6.3-8.2) g/dL Albumin 4.4 (3.5-5.0) g/dL Globulin 3.1 (1.7-4.1) g/dL Albumin/Globulin Ratio 1.4 (1.0-2.8) Urine RBC None seen (0-5/HPF) Urine WBC None seen (0-5/HPF) Urine Bacteria None seen (None) Ur Culture Indicated? Cult not indicated Micro UA Comment Microscopic normal Point of Care Testing Test Results Negative Urine Dip Bedside Urine Glucose Negative Bedside Urine Ketone +/- 5 Urine Specific Onset 1.015 Bedside Urine Occult Blood - Negative Bedside Urine pH 7.5 Bedside Urine Protein +/- 15 Bedside Urine Urobilinogen - Negative Bedside Urine Nitrite - Negative Bedside Urine Leukocytes - Negative Esterase Discharge Plan Departure Patient Disposition: Home Clinical Impression: Pelvic pain, Encounter for IUD removal, Dyspareunia, Bacterial vaginosis Instructions: DI for Bacterial Vaginosis, DI for Intrauterine Device Removal Activity Restrictions/Additional Instructions: Thank you for letting us be part of your care in the emergency department today. After consultation with the on-call OB gynecology Dr. their recommendation was that we remove the IUD today as based on your previous ultrasound we know that it may be slightly out of position and your having new similar pain today and this is likely the cause of the pain you been having during sex. We successfully removed your IUD today after you agreed to this. Please see the attached instructions and information regarding IUD removal. We also did a couple of swabs 1 which does show you have a bacterial vaginosis am prescribing antibiotics for this. The other swab is a vaginal culture swab that is not yet resulted. Your exam was otherwise normal. I expect you to have some pain and cramping over the next 12-24 hours or so. I recommend vaginal rest this means nothing in your vagina no sex no tampons etc. for the next 2-3 days or until you are feeling better. I prescribed some high strength ibuprofen I recommend you take Tylenol and ibuprofen for pain and rest for the next day. Also until your follow-up appointment on the I recommend that you use condoms for control if you do have sex as you are no longer protected now the IUD has been removed. I would talk to her primary care provider about choices for control moving forward. Please note that if you do develop fevers, chills, worsening pelvic or abdominal pain vaginal bleeding other than mild spotting or other symptoms of concern you should not hesitate to get re-evaluated/seek medical care. There is no evidence of an emergent or life threatening illness at this time, but follow up with your doctor in 1-2 days is recommended nonetheless to continue to rule out serious underlying causes of your symptoms. Please call the office for an appointment. Please return to the Emergency Department for any worsening or persistent symptoms. Please take medications as directed. Prescriptions: New ibuprofen 800 mg tablet 800 mg PO TID MDD 3200mg PRN (Reason: pain) Qty: 20 RF: 0 metronidazole 250 mg tablet 250 mg PO Q6H 7 Days Qty: 28 RF: 0 No Action mirtazapine PO RF: 0 Referrals: Rose Diaz ARNP [Primary Care Provider] - <Swati Garcia DO - Last Filed: 08/05/20 08:46> Cosign ED Attending Christopherature Attestation: I was immediately available in the department for consultation. Documentation has been reviewed. Case was discussed with myself, recommended to consult with OB for recommendations. Dr. Patterson recommends removal if visualized and IUD was removed without issue. Agree with plan and recommendations. Genital culture is pending.
[2020-08-04 10:47] LABS: Add Manual Diff / Slide Review NO; Basophils Absolute Auto 0 /uL (0-100); Basophils Percent Auto 0.4 % (0-2); Eosinophils Absolute Auto 0 /uL (0-450); Eosinophils Percent Auto 0.6 % (2-4); Hematocrit 39.4 % (36-46); Lymphocytes Absolute Auto 1700 /uL (1100-4500); Lymphocytes Percent Auto 23.8 % (25-40); Mean Corpuscular HGB Conc 33.1 % (30-36); Mean Corpuscular Hemoglobin 30.6 PG (26-34); Mean Corpuscular Volume 92.2 fL (80-100); Monocytes Absolute Auto 600 /uL (0-900); Monocytes Percent Auto 7.6 % (3-14); Neutrophils Absolute Auto 4900 /uL (1500-7000); Neutrophils Percent Auto 67.6 % (50-75); Platelet Count 255 X10^3/uL (150-400); Red Blood Cell Count 4.27 X10^6/uL (4.0-5.2); Red Cell Distribution Width 12.9 % (11.6-14.8); White Blood Cell Count 7.3 X10^3/uL (4.5-11.0)
[2020-08-04] MEDS: KETOROLAC 60 MG/2 ML VIAL 15 MG IV (10:48)
[2020-08-04 10:54] LABS: Bacteria Urine None Seen; RBC Urine None Seen (0-5/HPF); WBC Urine None Seen (0-5/HPF)
[2020-08-04 10:56] LABS: Alanine Aminotransferase 26 IU/L (<35); Albumin 4.4 g/dL (3.5-5.0); Albumin Globulin Ratio 1.4 (1.0-2.8); Alkaline Phosphatase 60 U/L (38-126); Aspartate Aminotransferase 33 IU/L (14-36); BUN Creatinine Ratio 22.2 (6-22); Bilirubin Total 0.6 mg/dL (0.2-1.3); Blood Urea Nitrogen 12 mg/dL (7-17); Carbon Dioxide 28 mmol/L (22-32); Chloride 103 mmol/L (98-107); Estimated Glomerular Filt Rate > 60.0 mL/min (>60); Globulin 3.1 g/dL (1.7-4.1); Glucose 94 mg/dL (70-100); HEMOLYSIS < 15 (0-50); Potassium 4.2 mmol/L (3.4-5.1); Sodium 136 mmol/L (137-145); Total Protein 7.5 g/dL (6.3-8.2)
[2020-08-04 11:06] LABS: Culture Indicated Urine Cult Not Indicated; Urine Comments Microscopic Normal
[2020-08-04] MEDS: ACETAMINOPHEN 325 MG TABLET 975 MG PO (12:09)
[2020-08-04 13:14] VITALS: BP 118/64; PULSE 85; RESP 16; O2SAT 100
== END 2020-08-04 13:14 | disposition home or self-care (01) ==
PROVIDERS: Emergency Provider Student in an Organized Health Care Education/Training Program; PCP Registered Nurse
DX: R10.2 Pelvic and perineal pain (principal); N76.0 Acute vaginitis; Z30.432 Encounter for removal of intrauterine contraceptive device
CPT/HCPCS: 36415; 80053; 81003; 81015; 81025; 85025; 87070; 87205; 87210; 96374; 99281; 99284; J1885

== ENCOUNTER → 2020-08-31 09:50 | Outpatient (CLI) | payer OTHER, MEDICAID, SELFPAY ==
--- NOTE | 2020-08-31 09:54 | DI.RAD.S_ITS ---
PROCEDURE: XR THORACIC SPINE 2V INDICATIONS: neck pain; injury TECHNIQUE: 2 views of the thoracic spine were acquired. COMPARISON: [facility], CR, XR CERVICAL SPINE 2V OR 3V, 08/31/2020, 9:54. FINDINGS: Bones: No fractures or dislocations. No suspicious bony lesions. 12 pairs of ribs are noted, and appear intact where visualized. Soft tissues: No paravertebral stripe thickening. IMPRESSION: No acute thoracic spine injuries. Dictated by: Stephanie Tian M.D. on 08/31/2020 at 16:26 Approved by: Stephanie Tian M.D. on 08/31/2020 at 16:27
--- NOTE | 2020-08-31 09:54 | DI.RAD.S_ITS ---
PROCEDURE: XR CERVICAL SPINE 2V OR 3V INDICATIONS: neck pain; injury TECHNIQUE: 3 view(s) of the cervical spine were acquired. COMPARISON: None. FINDINGS: Bones: No fractures or dislocations to the C7 level. Straightening of cervical curvature. The lateral masses of C1 appear intact on the odontoid view. No suspicious bony lesions. Soft tissues: No prevertebral soft tissue swelling. IMPRESSION: Straightening of cervical curvature. No fracture. Dictated by: Stephanie Tian M.D. on 08/31/2020 at 16:25 Approved by: Stephanie Tian M.D. on 08/31/2020 at 16:26
== END ==
PROVIDERS: PCP Registered Nurse; Referring Provider Registered Nurse; Visit Provider Registered Nurse
DX: M54.2 Cervicalgia (principal); M54.9 Dorsalgia, unspecified
CPT/HCPCS: 72040; 72072

== ENCOUNTER → 2020-10-15 11:19 | Outpatient (CLI) | payer OTHER, MEDICAID, SELFPAY ==
[2020-10-15] MEDS: COVID-19 VACC, Ad26(JANSSEN)/PF 0.5 ML IM (11:40)
== END ==
PROVIDERS: PCP Registered Nurse; Visit Provider Internal Medicine
DX: Z23 Encounter for immunization (principal)
CPT/HCPCS: 0031A; 91303

== ENCOUNTER → 2022-03-21 08:46 | Outpatient (CLI) | payer OTHER, MEDICAID, SELFPAY ==
[2022-03-21 09:32] LABS: Hematocrit 38.7 % (36-46); Hemoglobin 13.4 g/dL (12.0-16.0); Mean Corpuscular HGB Conc 34.6 % (30-36); Mean Corpuscular Hemoglobin 30.9 PG (26-34); Mean Corpuscular Volume 89.3 fL (80-100); Platelet Count 296 X10^3/uL (150-400); Red Blood Cell Count 4.34 X10^6/uL (4.0-5.2); Red Cell Distribution Width 12.3 % (11.6-14.8); White Blood Cell Count 7.7 X10^3/uL (4.5-11.0)
[2022-03-21 10:27] LABS: TSH w/ Reflex to FT4 0.91 uIU/mL (0.47-4.68)
== END ==
PROVIDERS: PCP Registered Nurse Diabetes Educator; Referring Provider Registered Nurse Diabetes Educator; Visit Provider Registered Nurse Diabetes Educator
DX: F32.9 Major depressive disorder, single episode, unspecified (principal); F41.9 Anxiety disorder, unspecified; R53.83 Other fatigue
CPT/HCPCS: 36415; 84443; 85027

== ENCOUNTER → 2022-08-10 14:28 | Outpatient (CLI) | payer OTHER, MEDICAID, SELFPAY ==
--- NOTE | 2022-08-10 14:29 | DI.US.S_ITS ---
PROCEDURE: US ABDOMEN LIMITED INDICATIONS: ANTERIOR LEFT CHEST WALL LUMP X 2 YEARS TECHNIQUE: Real-time focused scanning was performed of the area of interest, with image documentation. COMPARISON: None. FINDINGS: No significant sonographic abnormality is seen in the patient indicated area of concern at the left anterior chest wall. IMPRESSION: No significant sonographic abnormality. Approved by: Jona Saleem M.D. on 08/10/2022 at 15:40
== END ==
PROVIDERS: PCP Registered Nurse Diabetes Educator; Referring Provider Registered Nurse Diabetes Educator; Visit Provider Registered Nurse Diabetes Educator
DX: R22.9 Localized swelling, mass and lump, unspecified (principal); L98.9 Disorder of the skin and subcutaneous tissue, unspecified
CPT/HCPCS: 76705